=== PATIENT | female | born 1985 | race Caucasian/White ===

== ENCOUNTER 2017-10-25 10:36 | Emergency (ER) | payer SELFPAY ==
[~2017-10-25] VITALS: Ht 172.7 cm; Wt 65.0 kg
[2017-10-25 10:37] VITALS: BP 143/95
== END 2017-10-25 11:00 | disposition home or self-care (01) ==
LOC: ED 10:54
DX: L03.116 Cellulitis of left lower limb (principal); F17.200 Nicotine dependence, unspecified, uncomplicated
CPT/HCPCS: 99283

== ENCOUNTER 2018-10-21 13:41 | Emergency (ER) | payer SELFPAY ==
--- NOTE | 2018-10-21 13:57 | NUR ---
No answer when called for triage.
--- NOTE | 2018-10-21 14:10 | NUR ---
No answer when called for triage.
--- NOTE | 2018-10-21 14:22 | NUR ---
No answer when called for triage.
== END 2018-10-21 14:23 | disposition left against medical advice (07) ==
LOC: ED 14:17
DX: Z53.21 Procedure and treatment not carried out due to patient leaving prior to being seen by health care provider (principal)

== ENCOUNTER 2019-09-05 20:01 | Emergency (ER) | payer SELFPAY ==
--- NOTE | 2019-09-05 20:07 | NUR ---
PT JUS REMSA. PT ASKED TO REMOVE SHIRT AND PLACE GOWN ON. PT ASKING TO LEAVE. PT EXPLAINED THAT THE DR NEEDS TO SEE HER AND WE WANT TO HELP HER. PT KEPT ASKING TO LEAVE. PT DECIDED TO LEAVE. PT AMBULATED TO EXIT WITH STEADY GAIT AND ALL BELONGINGS.
== END 2019-09-05 20:11 | disposition left against medical advice (07) ==
LOC: ED 20:08
DX: F41.9 Anxiety disorder, unspecified (principal); Z53.21 Procedure and treatment not carried out due to patient leaving prior to being seen by health care provider